=== PATIENT | male | born 1990 | race African-American/Black ===

== ENCOUNTER 2018-08-02 17:47 | Inpatient (IN) | payer OTHER ==
[~2018-08-02 17:47] MED LIST: ISOVUE-370 76%-LOCM 1 ML ONE
[2018-08-02] MEDS ORDERED: Ondansetron PF 4 MG/2 ML Vial ONE ×3 (17:57→21:55)
[2018-08-02] MEDS ORDERED: Fentanyl 100 MCG/2 ML VIAL ONE (17:57)
[2018-08-02] MEDS ORDERED: KETAMINE 100 MG/ML (5ML VIAL) ONE ×2 (18:08→19:17)
[2018-08-02] MEDS ORDERED: PROPOFOL 20 ML ONE ×2 (18:09→19:18)
[2018-08-02 18:25] LABS: #Basophils 0.1 thou/uL (0.0-0.2); #Eosinphils 0.1 thou/uL (0.0-0.7); #Lymphocytes 2.7 thou/uL (1.20-3.40); #Monocytes 0.9 thou/uL (0.11-0.59); #Neutrophils 6.9 thou/uL (1.40-6.50); %Basophils 0.8 % (0.0-1.0); %Eosinophils 0.9 % (0.0-10.0); %Lymphocytes 25.7 % (21.0-51.0); %Monocytes 8.2 % (0.0-10.0); %Neutrophils 64.5 % (42.0-75.0); Hemoglobin 14.9 g/dL (14.0-18.0); Mean Corpuscular Hemoglobin 30.7 pg (27.0-31.0); Mean Platelet Volume 8.2 fL (7.4-10.4); Platelet Count 185 thou/uL (130-400); RBC Distribution Width 11.6 % (11.5-14.5); Red Blood Cell (RBC) Count 4.85 mill/uL (4.70-6.10); White Blood Cell (WBC) Count 10.6 thou/uL (4.8-10.8)
[2018-08-02 18:31] LABS: PTT 23.9 SEC (22.9-36.1); Prothrombin Time 13.7 SEC (12.0-14.7)
[2018-08-02 18:42] LABS: ALT (SGPT) 26 U/L (8-55); AST (SGOT) 30 U/L (5-34); Albumin 4.4 g/dL (3.5-5.0); Alkaline Phosphatase 61 U/L (40-150); Anion Gap 11 mmol/L (10-20); BUN (Urea Nitrogen) 13 mg/dL (8.9-20.6); Bilirubin, Total 0.8 mg/dL (0.2-1.2); Calc. Creatinine Clearance 0 mL/min (70-130); Calcium 9.1 mg/dL (7.8-10.44); Carbon Dioxide 27 mmol/L (22-29); Chloride 105 mmol/L (98-107); Estimated GFR-MDRD Greater than 90; Globulin 3.3 g/dL (2.4-3.5); Glucose 119 mg/dL (70-105); Potassium 3.6 mmol/L (3.5-5.1); Protein, Total 7.7 g/dL (6.0-8.3); Sodium 139 mmol/L (136-145)
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
[2018-08-02] MEDS ORDERED: Propofol 500 MG/50 ML VIAL ONE (19:18)
--- NOTE | 2018-08-02 19:26 | RAD ---
FRONTAL RADIOGRAPH RIGHT HIP: 08/02/2018 HISTORY: Status post reduction. COMPARISON: Frontal radiograph pelvis from 08/02/2018. FINDINGS: The previously noted dislocation of the right hip has not been reduced. The femoral head is still la terally and slightly proximally dislocated. IMPRESSION: Dislocated right hip. POS: [facility]
[2018-08-02] MEDS ORDERED: CEFAZOLIN/Water 2 GM/20 ML SYRINGE SLOW IVP SCH (19:45)
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
--- NOTE | 2018-08-02 20:28 | RAD ---
RIGHT HIP ONE VIEW: HISTORY: Post reduction. FINDINGS: On this single projection, the femoral head appears to be in normal alignment with the acetabulum. IMPRESSION: Reduction of hip dislocation. POS: [facility]
[2018-08-02] MEDS ORDERED: Dextrose 5% in Water 1,000 ML IV PRN (20:47)
[2018-08-02] MEDS ORDERED: Morphine 2 MG/ML SYRINGE SLOW IVP PRN (20:47)
[2018-08-02] MEDS ORDERED: Ondansetron PF 4 MG/2 ML Vial IVP PRN (20:47)
[2018-08-02] MEDS ORDERED: Dextrose 50% Abboject 50 ML SYRINGE SLOW IVP PRN (20:47)
[2018-08-02] MEDS ORDERED: Ondansetron ODT 4 MG TAB PO PRN (20:47)
[2018-08-02] MEDS ORDERED: HYDROcodone/Acetaminophen 10/325 mg Tablet PO PRN (20:51)
--- NOTE | 2018-08-02 21:04 | CT ---
CT PELVIS PERFORMED WITHOUT CONTRAST ENHANCEMENT: HISTORY: Right hip dislocation reduction. FINDINGS: The visualized intrapelvic contents appear unremarkable. The pelvic ring is intact. The SI joints are symmetric. There is no diastasis of the symphysis. The right hip dislocation has been reduced, and the femoral head is now in a more normal position. T here are intraarticular bone fragments, which have probably risen from the posterior margin of the ac etabulum. Two of these bone fragments are as much as 2 cm in maximum length and 3-4 mm in width. Th e femoral head is now in a more normal relationship to the acetabulum. IMPRESSION: Reduction of the hip dislocation. There is a fracture along the more posterior and superior edge of the acetabulum. The fracture fragments from this dislocation have displaced and are mainly in an int raarticular location. POS: [facility]
[2018-08-02 21:50] LABS: CKMB 2.8 ng/mL (0-6.6); Troponin I Less than 0.010 ng/mL (< 0.028)
[2018-08-02] MEDS ORDERED: Potassium Chloride 20 MEQ TAB PO SCH (22:00)
[2018-08-03] MEDS ORDERED: Morphine 2 MG/ML SYRINGE ONE (00:07)
[2018-08-03] MEDS ORDERED: D5 1/2 NS w/20 mEq KCL 1,000 ML IV SCH (00:30)
[2018-08-03] MEDS ORDERED: D5 1/2 NS w/20 mEq KCL 1,000 ML ONE (00:30)
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
[2018-08-03] MEDS ORDERED: Bacitracin Zinc 1 Packet ONE (02:50)
[2018-08-03 03:14] LABS: Bilirubin Negative (Negative); Blood, Urine Negative (Negative); Clarity CLEAR (Clear); Glucose, Urine (Dipstick) Negative (Negative); Leukocyte Negative (Negative); Nitrite Negative (Negative); Protein, Urine (Dipstick) Negative (Neg-Trace); Specific Gravity, Urine 1.027 (1.002-1.036); Urobilinogen 0.2 mg/dL (0.2-1.0); pH, Urine 6.5 (5.0-9.0)
[2018-08-03] MEDS: Sodium Chloride 0.9% 1,000 ML IV SCH ×3 (03:39→13:56)
[2018-08-03 03:41] VITALS: BMI 26.9
[2018-08-03] MEDS: traMADol HCl 50 MG TAB PO SCH ×5 (04:09→20:46)
[2018-08-03] MEDS: Senokot S 8.6-50 MG TAB PO SCH ×3 (04:10→20:46)
[2018-08-03] MEDS: Acetaminophen 325 MG TAB PO SCH ×5 (04:10→20:46)
[2018-08-03 06:15] LABS: #Basophils 0.1 thou/uL (0.0-0.2); #Lymphocytes 1.9 thou/uL (1.20-3.40); #Monocytes 1.1 thou/uL (0.11-0.59); #Neutrophils 7.6 thou/uL (1.40-6.50); %Basophils 0.8 % (0.0-1.0); %Eosinophils 0.1 % (0.0-10.0); %Lymphocytes 17.7 % (21.0-51.0); %Monocytes 10.4 % (0.0-10.0); Hemoglobin 13.1 g/dL (14.0-18.0); Mean Corpuscular HGB CONC 33.3 g/dL (32.0-36.0); Mean Corpuscular Hemoglobin 30.7 pg (27.0-31.0); Mean Corpuscular Volume 92.3 fL (78.0-98.0); Mean Platelet Volume 8.6 fL (7.4-10.4); Platelet Count 163 thou/uL (130-400); RBC Distribution Width 11.6 % (11.5-14.5); Red Blood Cell (RBC) Count 4.27 mill/uL (4.70-6.10); White Blood Cell (WBC) Count 10.8 thou/uL (4.8-10.8)
[2018-08-03 06:53] LABS: Anion Gap 11 mmol/L (10-20); BUN (Urea Nitrogen) 9 mg/dL (8.9-20.6); Calc. Creatinine Clearance 142 mL/min (70-130); Calcium 8.8 mg/dL (7.8-10.44); Carbon Dioxide 23 mmol/L (22-29); Chloride 106 mmol/L (98-107); Estimated GFR-MDRD Greater than 90; Glucose 104 mg/dL (70-105); Magnesium 2.4 mg/dL (1.6-2.6); Phosphorus 3.4 mg/dL (2.3-4.7); Potassium 3.7 mmol/L (3.5-5.1); Sodium 136 mmol/L (136-145)
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
[2018-08-03] MEDS: Polyethylene Glycol 3350 17 GM Packet PO SCH (08:45)
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
[2018-08-03] MEDS ORDERED: CEFAZOLIN 2 GM/50 ML BAG ONE (14:09)
[2018-08-03] MEDS ORDERED: Midazolam HCl 2 mg/2 ml Vial ONE (14:28)
[2018-08-03] MEDS ORDERED: Fentanyl 250 MCG/5 ML VIAL ONE (14:46)
[2018-08-03] MEDS ORDERED: SUGAMMADEX SODIUM 200 MG/2 ML VIAL ONE (14:46)
[2018-08-03] MEDS ORDERED: PROPOFOL 200 MG/20 ML VIAL ONE (16:38)
[2018-08-03] MEDS ORDERED: Ondansetron PF 4 MG/2 ML Vial ONE ×2 (16:38→18:20)
[2018-08-03] MEDS ORDERED: Lidocaine 1% PF 5 ML VIAL ONE (16:38)
[2018-08-03] MEDS ORDERED: Dexamethasone 20 MG/5 ML VIAL ONE (16:38)
[2018-08-03] MEDS ORDERED: Glycopyrrolate 0.2 MG/ML 5 ML SYRINGE ONE (16:38)
[2018-08-03] MEDS ORDERED: Bupivacaine HCl 0.5%/Epinephrine 1:200,000/PF 30 ml Vial ONE (16:50)
[2018-08-03] MEDS ORDERED: CEFAZOLIN/Water 2 GM/20 ML SYRINGE SLOW IVP SCH (17:00)
[2018-08-03] MEDS ORDERED: Fentanyl 100 MCG/2 ML VIAL ONE ×3 (17:32→18:18)
[2018-08-03] MEDS ORDERED: Ondansetron HCl/PF 4 MG/2 ML Vial IVP PRN (17:42)
[2018-08-03] MEDS ORDERED: Promethazine HCl 25 MG/ML VIAL SLOW IVP PRN (17:42)
[2018-08-03] MEDS ORDERED: Promethazine HCl 25 MG/ML VIAL IM PRN (17:42)
--- NOTE | 2018-08-03 19:23 | RAD ---
INTRAOPERATIVE RADIOGRAPH OF THE RIGHT HIP: 08/03/18 HISTORY: Fracture dislocation, status post ORIF. FINDINGS: The femoral head projects over the acetabulum on the right in a normal position. Faintly visualized o sseous fragment noted along the lateral aspect of the posterior acetabular lip. IMPRESSION: Intraoperative radiography as detailed above. POS: [facility]
[2018-08-04] MEDS: traMADol HCl 50 MG TAB PO SCH ×3 (02:12→14:47)
[2018-08-04] MEDS: Acetaminophen 325 MG TAB PO SCH ×3 (02:12→14:47)
[2018-08-04] MEDS: Sodium Chloride 0.9% 1,000 ML IV SCH (02:15)
[2018-08-04 05:45] LABS: #Lymphocytes 0.6 thou/uL (1.20-3.40); #Monocytes 1.1 thou/uL (0.11-0.59); #Neutrophils 8.1 thou/uL (1.40-6.50); %Basophils 0.3 % (0.0-1.0); %Eosinophils 0.1 % (0.0-10.0); %Lymphocytes 5.9 % (21.0-51.0); %Monocytes 11.4 % (0.0-10.0); %Neutrophils 82.4 % (42.0-75.0); Hemoglobin 13.2 g/dL (14.0-18.0); Mean Corpuscular HGB CONC 33.6 g/dL (32.0-36.0); Mean Corpuscular Hemoglobin 31.3 pg (27.0-31.0); Mean Corpuscular Volume 93.2 fL (78.0-98.0); Mean Platelet Volume 9.9 fL (7.4-10.4); Platelet Count 139 thou/uL (130-400); RBC Distribution Width 11.6 % (11.5-14.5); White Blood Cell (WBC) Count 9.9 thou/uL (4.8-10.8)
[2018-08-04 05:55] LABS: Anion Gap 12 mmol/L (10-20); BUN (Urea Nitrogen) 7 mg/dL (8.9-20.6); Calc. Creatinine Clearance 139 mL/min (70-130); Calcium 9.1 mg/dL (7.8-10.44); Carbon Dioxide 23 mmol/L (22-29); Chloride 105 mmol/L (98-107); Estimated GFR-MDRD Greater than 90; Glucose 133 mg/dL (70-105); Magnesium 2.1 mg/dL (1.6-2.6); Phosphorus 2.7 mg/dL (2.3-4.7); Potassium 4.4 mmol/L (3.5-5.1); Sodium 136 mmol/L (136-145)
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
[2018-08-04] MEDS: CEFAZOLIN 2 GM/50 ML BAG IVPB SCH ×2 (08:38→15:31)
[2018-08-04] MEDS: Senokot S 8.6-50 MG TAB PO SCH (08:39)
[2018-08-04] MEDS: Polyethylene Glycol 3350 17 GM Packet PO SCH (08:40)
[2018-08-04 16:06] VITALS: BP 135/78; TEMP 98.1
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
== END 2018-08-04 18:00 | disposition home or self-care (01) | DRG 516 ==
LOC: ERS 17:47 → 2NO 21:32 → SURG A 08-03 17:19 → SJJU 08-03 18:46
PROVIDERS: ADMIT Specialist; ATTEND Specialist
PROC: 0QS404Z Reposition Right Acetabulum with Internal Fixation Device, Open Approach (ICD-10-PCS; principal; 2018-08-03)
DX: S32.421A Displaced fracture of posterior wall of right acetabulum, initial encounter for closed fracture (principal); S73.014A Posterior dislocation of right hip, initial encounter; V43.52XA Car driver injured in collision with other type car in traffic accident, initial encounter; Y92.410 Unspecified street and highway as the place of occurrence of the external cause; M25.351 Other instability, right hip; M24.051 Loose body in right hip
CPT/HCPCS: 27250; 36415; 71260; 72170; 72192; 74177; 76001; 80048; 80053; 81003; 82553; 83735; 84100; 84484; 85025; 85610; 85730; 86850; 86900; 86901; 93005; 93306; 96361; 96374; 96375; 96376; 99152; C1713; G0390; G8978-GP-CJ; G8979-GP-CI; G8987-GO-CK; G8988-GO-CJ; J0670; J1100; J2001; J2250; J2270; J2405; J2704; J3010

== ENCOUNTER 2019-07-18 15:14 | Outpatient (CLI) | payer OTHER ==
--- NOTE | 2019-07-18 17:03 | MRI ---
MRI LEFT KNEE: Date: 07-18-19 Provided Clinical History: Left knee pain. FINDINGS: The anterior cruciate ligament, posterior cruciate ligament, medial collateral ligament, and lateral collateral ligamentous complex demonstrate an intact MR appearance, as does the extensor mechanism. The medial and lateral menisci demonstrate no evidence for tear. There is a full thickness articular cartilage defect involving the central weightbearing portions of the lateral femoral condyle measuring about 3 mm in transverse dimension and about 5 mm in AP dimensi on. There is a full thickness articular cartilage fissure involving the lateral aspect of the lateral patellar facet with signal inhomogeneity involving the remainder of the lateral patellar facet artic ular cartilage. There is full thickness articular cartilage fissuring involving portions of the adjac ent lateral femoral trochlear cartilage and low grade fissuring involving the central aspects of the trochlear articular cartilage. There is a small knee joint effusion. No focal concerning regional marrow or muscular signal abnormality is evident. IMPRESSION: 1. Full thickness articular cartilage defect involving the lateral femoral condyle and lateral patell ofemoral articular chondrosis. 2. Small knee joint effusion. POS: [facility]
== END 2019-07-18 15:15 | disposition home or self-care (01) ==
LOC: SCSMRI 15:14 → TBSIIMAG 15:15
PROVIDERS: ATTEND Orthopaedic Surgery
DX: M25.562 Pain in left knee (principal); M25.462 Effusion, left knee